=== PATIENT | female | born 1995 | race Caucasian/White ===

== ENCOUNTER 2022-02-24 07:00 | Outpatient (RCR) | payer OTHER, SELFPAY | END 2022-05-14 08:50 | disposition home or self-care (01) | LOC: HO.PT 07:00 | PROVIDERS: PCP Family Medicine; Visit Provider Obstetrics & Gynecology Female Pelvic Medicine and Reconstructive Surgery | DX: N94.2 Vaginismus (principal) | CPT/HCPCS: 97112; 97140; 97162; 97530 ==